=== PATIENT | male | born 2000 | race Caucasian/White ===

== ENCOUNTER 2018-10-17 01:26 | Emergency (ER) | payer SELFPAY ==
[2018-10-17 01:27] VITALS: BMI 21.6
--- NOTE | 2018-10-17 02:44 | C.PDOC ---
History Of Present Illness 18 year old male presents to the ED c/o right knee pain for the past couple of months. Patient reports symptoms worsened after playing soccer yesterday. Patient states he took Motrin 2 days ago with minimal relief. Patient denies new injury, fall, trauma, weakness, numbness. Time Seen by Provider: 10/17/18 01:41 Chief Complaint (Nursing): Lower Extremity Problem/Injury History Per: Patient, EMS Onset/Duration Of Symptoms: Days Current Symptoms Are (Timing): Still Present Recent travel outside of the [place]: No Additional History Per: Patient - Knee Description Of Injury: Other Past Medical History Reviewed: Historical Data, Nursing Documentation, Vital Signs Vital Signs: Last Vital Signs Temp 97.9 F 10/17/18 01:28 Pulse 86 10/17/18 01:28 Resp 16 10/17/18 01:28 BP 126/79 10/17/18 01:28 Pulse Ox 100 10/17/18 01:28 - Medical History PMH: No Chronic Diseases Surgical History: No Surg Hx Family History: States: Unknown Family Hx - Social History Hx Alcohol Use: No Hx Substance Use: No Review Of Systems Constitutional: Negative for: Fever, Chills Musculoskeletal: Positive for: Leg Pain. Negative for: Foot Pain Skin: Negative for: Rash Neurological: Negative for: Weakness, Numbness, Headache Physical Exam - Physical Exam Appears: Non-toxic, No Acute Distress Skin: Normal Color, Warm, Dry Head: Atraumatic, Normacephalic Eye(s): bilateral: Normal Inspection Neck: Normal ROM, Supple Extremity: Normal ROM, Tenderness (posterior aspect right knee. No mass or cyst palpable), Capillary Refill (< 2 seconds), No Swelling Extremity: Bilateral: Atraumatic, Normal Color And Temperature Pulses: Left Dorsalis Pedis: Normal, Right Dorsalis Pedis: Normal Neurological/Psych: Oriented x3, Normal Speech, Normal Cognition Gait: Steady ED Course And Treatment O2 Sat by Pulse Oximetry: 100 (ON RA) Pulse Ox Interpretation: Normal - Other Rad Right knee X-Ray X-Ray: Interpreted by Me, Viewed By Me Interpretation: No fracture or dislocation Progress Note: Plan: - Motrin 600 mg PO. - Right knee X-Ray. Patient reports improvement after medication. Patient placed on a knee brace, advised to continue using NSAIDs for pain. Patient advised to follow up with PMD/ortho Disposition Counseled Patient/Family Regarding: Diagnosis, Need For Followup - Disposition Referrals: Betsy Lombardi MD [Staff Provider] - Disposition: HOME/ ROUTINE Disposition Time: 02:40 Condition: STABLE Additional Instructions: Use knee brace for support Follow up with orthopedist for further evaluation Take motrin as directed for pain Avoid any strenuous or rigorous sports Return to ER if worse Prescriptions: Ibuprofen [Motrin] 600 mg PO Q6H #20 tab Instructions: Knee Pain (DC) Forms: [employer] (Czech) - Clinical Impression Clinical Impression: Knee pain, right - 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 - Scribe Statement The provider has reviewed the documentation as recorded by the Scribe Aristeo Hernández All medical record entries made by the Scribe were at my direction and personally dictated by me. I have reviewed the chart and agree that the record accurately reflects my personal performance of the history, physical exam, medical decision making, and the department course for this patient. I have also personally directed, reviewed, and agree with the discharge instructions and disposition.
[2018-10-17 03:37] VITALS: BP 132/74; PULSE 74; RESP 20; TEMP 98.2
[2018-10-17 04:24] VITALS: O2SAT 100
--- NOTE | 2018-10-17 09:54 | RAD ---
Right knee three views HISTORY: Knee pain. COMPARISON: None available. FINDINGS: No evidence of acute displaced fracture or dislocation. No significant suprapatellar joint effusion. Question some soft tissue swelling in the posterior soft tissues. Impression: No evidence of acute displaced fracture or dislocation. Question soft tissue swelling in the posterior soft tissues. If pain persists, consider correlation with MRI.
== END 2018-10-17 03:35 | disposition home or self-care (01) ==
LOC: C.ER 01:26
DX: M25.561 Pain in right knee (principal); Y93.66 Activity, soccer